=== PATIENT | female | born 1950 | race Caucasian/White ===

== ENCOUNTER → 2020-06-25 | Outpatient (CLI) | payer MEDICARE, OTHER ==
--- NOTE | 2020-06-25 14:40 | REPMRS ---
Patient History The patient states she had a clinical breast exam in March 2020. Patient is postmenopausal. Family history of colorectal cancer under age 50 in father. Took hormonal contraceptives for 27 years beginning at age 15. Digital Woman Screen Mammo: June 25, 2020 - Exam #: [id number] Bilateral CC and MLO view(s) were taken. Technologist: RT Yesenia Prior study comparison: June 10, 2019, bilateral digital mammo screening bilat, performed at [facility]. June 08, 2018, bilateral digital mammo screening bilat, performed at [facility]. June 01, 2017, bilateral digital mammo screening bilat, performed at [facility]. FINDINGS: There are scattered fibroglandular densities. The Volpara volumetric breast density category is:B. There are dispersed coarse calcifications in the medial aspect of the left breast unchanged from multiple prior studies. There has been no change in the appearance of the mammogram from the prior studies. There is a mild amount of scattered fibroglandular density which is fairly symmetric. There is no interval development of dominant mass, architectural distortion, or grouped microcalcification suggestive of malignancy. 3-D tomosynthesis shows no additional findings. Assessment: BI-RADS/ACR category 2 mammogram. Benign Findings. Recommendation Routine screening mammogram of both breasts in 1 year (for women over age 40). This patient's [facility] Lifetime Breast Cancer Risk is estimated at 7.6 %. This mammogram was interpreted with the aid of an FDA-approved computer-aided dectection system. Electronically Signed By: Josh Castro MD 06/25/20 [id number]
== END ==
LOC: M WHC 13:08
PROVIDERS: ATTEND Physician Assistant
DX: Z12.31 Encounter for screening mammogram for malignant neoplasm of breast (principal); Z80.0 Family history of malignant neoplasm of digestive organs; Z92.0 Personal history of contraception

== ENCOUNTER → 2021-09-19 | Outpatient (CLI) | payer MEDICARE, OTHER | LOC: M WHC 09:44 | PROVIDERS: ATTEND Family Medicine | DX: M17.9 Osteoarthritis of knee, unspecified (principal); Z12.31 Encounter for screening mammogram for malignant neoplasm of breast; M81.0 Age-related osteoporosis without current pathological fracture ==

== ENCOUNTER 2023-06-29 09:31 | Day surgery (SDC) | payer MEDICARE, OTHER ==
[~2023-06-29] VITALS: Ht 167.6 cm; Wt 102.4 kg
[~2023-06-29 09:31] MED LIST: ALLO100T PO; BIMA01SOL; CEFUROXIME 1MG/0.1ML INTRACAMERAL INJ As Ordered ONE; CVS1CHW13 PO; ECOT81TA5 PO; FLUO20CA22 PO; HAIR1CHW PO; JARD1TAB3 PO; LANTINJ4 SQ; LIDOCAINE 1% SDV 5ML VIAL As Ordered ONE; LR 1,000 ML IV SCH; METF-838 PO; MIDAZOLAM INJ 2MG/2ML VIAL As Ordered ONE; OLOP2.5D3 OD; SIMV40TA20 PO; VITA100093 PO; fentaNYL 100 MCG/2 ML INJECTION As Ordered ONE
[2023-06-29] MEDS: FLURBIPROFEN 0.03% OPHTH SOLN 2.5 ML OS SCH (11:09)
[2023-06-29] MEDS: PHENYLEPHRINE 2.5% OPHTH SOL 2ML OS SCH (11:09)
[2023-06-29] MEDS: ATROPINE SULFATE 1% OPHTH SOLN 2ML BTL OS SCH (11:09)
[2023-06-29] MEDS: TETRACAINE 0.5% OPHTH SOLN 4ML OS SCH (11:09)
[2023-06-29 12:38] VITALS: BP 109/73; TEMP 98; O2SAT 97
== END 2023-06-29 13:01 | disposition home or self-care (01) ==
LOC: M SDC 09:31
PROVIDERS: ATTEND Ophthalmology
DX: E11.36 Type 2 diabetes mellitus with diabetic cataract (principal); H25.12 Age-related nuclear cataract, left eye; H40.10X2 Unspecified open-angle glaucoma, moderate stage; E78.00 Pure hypercholesterolemia, unspecified; G47.30 Sleep apnea, unspecified; Z79.82 Long term (current) use of aspirin; Z79.899 Other long term (current) drug therapy; Z79.84 Long term (current) use of oral hypoglycemic drugs; Z79.4 Long term (current) use of insulin; Z90.710 Acquired absence of both cervix and uterus; M10.9 Gout, unspecified
CPT/HCPCS: 66991; J0697; J2250; J3010; V2632

== ENCOUNTER 2023-07-27 07:43 | Day surgery (SDC) | payer MEDICARE, OTHER ==
[~2023-07-27] VITALS: Ht 167.6 cm; Wt 103.4 kg
[~2023-07-27 07:43] MED LIST changes: -CEFUROXIME 1MG/0.1ML INTRACAMERAL INJ As Ordered ONE; +DUOVISC (0.50ML VISCOAT/0.85ML PROVISC) OPHTH KIT As Ordered ONE; -LIDOCAINE 1% SDV 5ML VIAL As Ordered ONE; -MIDAZOLAM INJ 2MG/2ML VIAL As Ordered ONE; -fentaNYL 100 MCG/2 ML INJECTION As Ordered ONE
[2023-07-27] MEDS: FLURBIPROFEN 0.03% OPHTH SOLN 2.5 ML OD SCH (08:09)
[2023-07-27] MEDS: TETRACAINE 0.5% OPHTH SOLN 4ML OD SCH (08:09)
[2023-07-27] MEDS: PHENYLEPHRINE 2.5% OPHTH SOL 2ML OD SCH (08:09)
[2023-07-27] MEDS: ATROPINE SULFATE 1% OPHTH SOLN 2ML BTL OD SCH (08:09)
[2023-07-27] MEDS ORDERED: fentaNYL 100 MCG/2 ML INJECTION As Ordered ONE (08:48)
[2023-07-27] MEDS ORDERED: MIDAZOLAM INJ 2MG/2ML VIAL As Ordered ONE (08:49)
[2023-07-27] MEDS: LIDOCAINE 1% SDV 5ML VIAL As Ordered ONE (09:28)
[2023-07-27] MEDS: CEFUROXIME 1MG/0.1ML INTRACAMERAL INJ As Ordered ONE (09:38)
[2023-07-27 09:52] VITALS: BP 112/64; TEMP 97.7; O2SAT 96
== END 2023-07-27 10:08 | disposition home or self-care (01) ==
LOC: M SDC 07:43
PROVIDERS: ATTEND Ophthalmology
DX: H25.11 Age-related nuclear cataract, right eye (principal); H40.1111 Primary open-angle glaucoma, right eye, mild stage; E11.9 Type 2 diabetes mellitus without complications; G47.30 Sleep apnea, unspecified; Z88.8 Allergy status to other drugs, medicaments and biological substances; Z91.048 Other nonmedicinal substance allergy status; Z79.899 Other long term (current) drug therapy
CPT/HCPCS: 66991; C1783; J0697; J2250; J3010; V2632